=== PATIENT | male | born 1960 | race African-American/Black ===

== ENCOUNTER 2016-06-01 18:16 | Emergency (ER) | payer OTHER ==
--- NOTE | ~2016-06-01 | EKG ---
PATIENT: DARREN ROSALES UNIT #: [id number] Ventricular Rate: 68 BPM Atrial Rate: 68 BPM P-R Interval: 162 ms QRS Duration: 92 ms Q-T Interval: 414 ms QTC Calculation(Bezet): 440 ms P [place]: 70 degrees Calculated R [place]: 27 degrees Calculated T [place]: 19 degrees Diagnosis Line: Normal sinus rhythm Diagnosis Line: Normal ECG Diagnosis Line: When compared with ECG of 15-APR-2016 06:04, Diagnosis Line: No significant change was found Diagnosis Line: Confirmed by RAUDEL LOPEZ MD ([id number]) on 06/02/2016 Diagnosis Line: 8:02:02 PM INTERPRETING MD: JESSICA JANG
[2016-06-01 16:44] LABS: POC - CKMB <1.0 ng/mL (0.0-7.9); POC - TROPONIN <0.05 ng/mL (<=0.05)
[2016-06-01 16:48] LABS: BASOPHIL# 0.1 X10e3 (0-0.3); BASOPHIL% 1.2 % (0-2.5); DIFF IND NO; EOSINOPHIL# 0.2 X10e3 (0-0.7); EOSINOPHIL% 2.7 % (0.0-7.0); HEMATOCRIT 41.4 % (38.0-50.0); HEMOGLOBIN 14.1 gm/dL (13.0-16.0); LYMPHOCYTE# 2.9 X10e3 (1.0-3.5); LYMPHOCYTE% 47.4 % (17.0-45.0); MEAN CELL VOLUME 95.7 FL (83-96); MEAN CORPUSCULAR HEMOGLOBIN 32.5 PG (28-34); MEAN PLATELET VOLUME 8.5 FL (6.5-11.5); MONOCYTE# 0.6 X10e3 (0-1.0); MONOCYTE% 10.6 % (3.0-12.0); NEUTROPHIL# 2.3 X10e3 (1.5-7.1); NEUTROPHIL% 38.1 % (40-75); PLATELET COUNT 135 X10e3 (140-420); RED BLOOD COUNT 4.33 X10e (3.90-5.60); RED CELL DISTRIBUTION WIDTH 12.8 % (11.0-15.5); WHITE BLOOD COUNT 6.1 X10e3 (4.0-10.5)
[2016-06-01 17:17] LABS: BUN/CREATININE RATIO 13.75; CALCIUM SERUM 8.7 mg/dL (8.4-10.2); CREATININE SERUM 0.8 mg/dL (0.6-1.4); GLOM FILT RATE Estimated 115.8 mL/min (>60); POTASSIUM 3.7 mmol/L (3.5-5.1)
[~2016-06-01 18:16] MED LIST: AMOXIL500 M1 PO; ATARAX PO; GRALISE1 EACH PO; METFORMIN HCL1000 M1 PO; MICRONASE5 M2 PO; MOTRIN IB200 M1 PO; NO MEDICATIONS; PREDNISONE PO; PROAIR HFA8.5 GM INH; PROCTOFOAM-HC10 G1 RC; TAMIFLU75 M1 PO; TUSSIONEX PENN473 ML PO; ULTRAM PO; VICODIN 5/1 TAB 5/50 PO; VICODIN 5/500 T1 TAB; VICODIN PO
== END 2016-06-01 18:40 | disposition home or self-care (01) ==
LOC: CED 18:16
PROVIDERS: Emergency Medicine
DX: E11.42 Type 2 diabetes mellitus with diabetic polyneuropathy (principal); E11.65 Type 2 diabetes mellitus with hyperglycemia; M25.511 Pain in right shoulder; G89.29 Other chronic pain; F17.200 Nicotine dependence, unspecified, uncomplicated; Z76.0 Encounter for issue of repeat prescription
CPT/HCPCS: 36415; 80048; 82553; 82947; 84484; 85025; 93005; 99283

== ENCOUNTER 2016-07-20 22:38 | Observation (INO) | payer OTHER ==
--- NOTE | ~2016-07-20 | CR72 ---
[facility] A Service of [facility] RADIOLOGY TEXT RESULTS PATIENT: DARREN ROSALES LOCATION: [facility] 313- : 58 UNIT #: [id number] AGE: [address]: Twila Floyd MD SEX: M ORDER DR: [id number] [facility] [address]. [place], [place] [address] [id number] MR#: [id number] Acc #: [id number] NAME: DARREN ROSALES : 1960 SEX: M STUDY DATE/TIME: 07/21/2016 1:45 UNIT: [address] ROOM: [facility] STUDY DESCRIPTION: CR Chest Single View Portable Attending Physician: Twila Floyd M.D. Ordering Physician: Quentin Murillo D.O. Primary Care Physician: No Primary Care Physician MEDICAL IMAGING REPORT This report is preliminary unless electronic signature is present EXAM Portable chest. INDICATION Chest pain today. PROCEDURE Frontal view of the chest. COMPARISON 04/08/2016 FINDINGS Heart size within normal limits. No dense consolidation. No pleural fluid or pneumothorax. IMPRESSION No active process. Dictated by... Rich Kurtz M.D. THIS IS AN ELECTRONICALLY VERIFIED REPORT Rich Kurtz M.D. at 07/25/2016 7:22 AM AMANDA/manjeet TD: 07/21/2016 10:11 JOB #: [id number] MEDICAL IMAGING REPORT Page 1 of 1 COPY
--- NOTE | ~2016-07-20 | EKG ---
PATIENT: DARREN ROSALES UNIT #: [id number] Ventricular Rate: 70 BPM Atrial Rate: 70 BPM P-R Interval: 170 ms QRS Duration: 88 ms Q-T Interval: 436 ms QTC Calculation(Bezet): 470 ms P [place]: 55 degrees Calculated R [place]: 3 degrees Calculated T [place]: 24 degrees Diagnosis Line: Normal sinus rhythm with sinus arrhythmia Diagnosis Line: Normal ECG Diagnosis Line: When compared with ECG of 01-JUN-2016 16:26, Diagnosis Line: No significant change was found Diagnosis Line: Confirmed by GABY RAMIREZ MD ([id number]) on Diagnosis Line: 07/21/2016 7:10:51 PM INTERPRETING MD: JAMES JANG
--- NOTE | ~2016-07-20 | CO ---
Unit #: [id number] #: [id number] Patient: DARREN ROSALES [id number] [address] [place], [place] [address] [id number] I MR#: [id number] NAME: DARREN ROSALES. ROOM: 313 Age: 56 Sex: M Admission Date: 07/21/2016 : 1960 Attending Physician: Twila Floyd M.D. CONSULTATION REPORT SHORT SUMMARY STAY CHIEF COMPLAINT Left arm numbness and pain. HISTORY OF PRESENTING ILLNESS A 56-year-old, male, who has a history of diabetes came, because of numbness and pain in the left arm. He was very concerned about stroke, because he has had strong family history of cerebrovascular accident. The patient works in the [employer]. He had a fall a week ago and since then, it is getting worse. The patient has had cervical spine surgery also about a year ago or so. According to patient, he is better since the admission in the last few hours. He does complain of tingling and numbness mostly three fingers on the left hand. He does complain of mildly decreased strength. No complain of back pain at this time; although, he does get pains off and on. PAST MEDICAL HISTORY 1. History of diabetes mellitus type 2. 2. Degenerative disk disease. 3. Chronic obstructive pulmonary disease. HOME MEDICATIONS Glucophage 500 mg b.i.d., and inhaler. Rest of the medication, he does not know the name. ALLERGIES No known drug allergies. SOCIAL HISTORY The patient is a smoker. Smokes half pack per day, has been smoking for long period of time. No history of alcohol abuse or drug abuse. The patient lives with his cousin and works in [employer]. FAMILY HISTORY The patient has a strong family history of diabetes, coronary artery disease, and stroke. REVIEW OF SYSTEMS No history of nausea or vomiting. No history of fevers, chills, or rigors. No history of chest pain. No history of abdominal pain. No palpitations. No syncopal episode. No leg swelling. Rest is as per history of presenting illness. Unit #: [id number] #: [id number] Patient: DARREN ROSALES PHYSICAL EXAMINATION GENERAL: The patient is lying comfortably in bed, in no respiratory distress. VITAL SIGNS: Blood pressure is 110/70, respiratory rate 17, pulse is 83, temperature 98.5, and oxygen saturation is 99%. HEENT: Head is normocephalic. Eye movements are normal. NECK: Supple. CHEST: Fair air entry. Some wheezing is heard bilaterally. CVS: S1, S2 positive. Regular rhythm. ABDOMEN: Soft. No tenderness. EXTREMITIES: Negative edema. Pulses are palpable. The patient does have chronic ulceration on the tips of two toes. According to the patient that has been there for a long period of time. It is dry. No discharge. B[employer] BINDING: Awake, alert, oriented x3. No focal neurological deficit. DIAGNOSTIC STUDIES LABORATORY RESULTS: WBC 6.2, hemoglobin 14.3, hematocrit 42.5, and platelet count of 138. Sodium 133, potassium 3.5, chloride 99, BUN 16, creatinine 1.1. Urinalysis is normal. Hemoglobin A1c 9.8. Vitamin B12 708, folic acid 16.3. Lipid profile shows total cholesterol 157, triglycerides 227, LDL 86, and HDL 26. IMAGING STUDIES: MRI of the brain was done. It shows no demonstrable intracranial abnormality. MRI of the cervical spine was done, which shows the patient does have concentric disk bulge with mild bilateral facet changes on the left side. No canal stenosis. There is no significant interval worsening when compared to the prior study from 2 years ago. HOSPITAL COURSE The patient was admitted to the hospital with left upper extremity numbness and tingling to rule out any TIA or CVA. MRI of the brain was done, which was normal. MRI of the cervical spine was done, which shows degenerative disk disease. The patient has had spine surgery in the past. May need to go back to the spine surgeon. The patient has also been found to have carpal tunnel syndrome. The patient has been given carpal tunnel syndrome brace. He will be using it during work and nighttime. Mobic 15 mg p.o. daily is being started. Plan of care has been discussed with the patient. Nicotine cessation counseling done. The patient will be seen in my office in a week. DISCHARGE INSTRUCTIONS Medication as per med rec. Follow up with Dr. Floyd, #[phone]. DISCHARGE MEDICATIONS Glucophage 500 mg b.i.d., Mobic 15 mg daily. Dictated by... Twila Floyd M.D. TOYA/yamileth TD: 07/22/2016 16:11 JOB #: [id number] Unit #: [id number] #: [id number] Patient: DARREN ROSALES CONSULTATION REPORT Page 1 of 1 X Twila Floyd MD CONSULTATION REPORT
--- NOTE | ~2016-07-20 | CO ---
Unit #: [id number] #: [id number] Patient: DARREN ROSALES [id number] [facility] [address] [facility]. [place], [place] [address] [id number] I MR#: [id number] NAME: DARREN ROSALES. ROOM: 313 Age: 56 Sex: M Admission Date: 07/21/2016 : 1960 Attending Physician: Twila Floyd M.D. CONSULTATION REPORT REASON FOR CONSULTATION Left-sided numbness. PATIENT IDENTIFICATION This is a 56-year-old, right-handed, male, who is evaluated in room 313 at [facility]. SOURCE OF INFORMATION The patient and previous records. PROBLEM LIST 1. History of diabetes mellitus. 2. COPD. 3. Thrombocytopenia. 4. Tobacco abuse. 5. Also cervical spine problems. He has had cervical spine surgery done. 6. Recent strep throat and influenza. 7. Right arm surgery. 8. Also hypertension. 9. Peripheral neuropathy. HISTORY OF PRESENT ILLNESS This is a very pleasant 56-year-old gentleman, who actually presented yesterday to the emergency room at 10:30 p.m. for left-sided numbness. The issue is that he has had cervical spine problem. He has had left-sided numbness and he works a physical job as a cook at [employer], so yesterday he got worse and he came. There was nothing on the face. There is nothing on the right side or in the left lower extremity. He is stable. He got a CT which was unremarkable. He already got an MRI which was unremarkable. His hemoglobin A1c is quite elevated. Clinically, he is complaining of numbness in the palm, but more so in the left little finger. No falls or injuries right now, but 3 days ago he fell on the right hip and he said he got up and then think it was much. He did not have any significant neck flexion-extension. No seizures. No migraines. He says he takes medication. He is on ibuprofen, Aleve, and metformin. Unit #: [id number] #: [id number] Patient: DARREN ROSALES He did not complain to me about any shortness of breath. He still smokes about half a pack and he does acknowledge some alcohol use. PAST MEDICAL HISTORY As discussed above. PAST SURGICAL HISTORY As discussed above. ALLERGIES None. HOME MEDICATIONS Metformin, ibuprofen, Aleve. Others are being looked into, but I believe that was all that we had. FAMILY HISTORY Diabetes, congestive heart failure, and lupus. SOCIAL HISTORY Drinks alcohol on weekends. Lives with the family. Works as a cook at [employer]. He is single, but has family with him. Half pack tobacco use. Denies drug use. REVIEW OF SYSTEMS Mostly as discussed in history of present illness. Mostly the left-sided numbness. CONSTITUTIONAL: No weight issues. No fever, chills, rigor, or sweats. HEENT: No headaches. No double vision, earache, runny nose, or sore throat. CARDIOVASCULAR: No chest pain, clubbing, cyanosis, orthopnea, or palpitation. PULMONARY: He did not complaint of shortness of breath to me. GI: No nausea, vomiting, diarrhea, or constipation. GENITOURINARY: No genitourinary symptoms. EXTREMITIES: Problems as discussed. BACK: He has had back problems in the past. PSYCHIATRIC: No psychotic issue. NEUROLOGIC: Issue of left-side numbness, possible peripheral neuropathy. No other hematologic, dermatologic, or endocrine problems other than diabetes known to me. PHYSICAL EXAMINATION VITAL SIGNS: Temperature 97.9, pulse is 74, respirations 16, blood pressure is 106/70. Pain was 6 to 7/10. O2 saturations were 95% to 100%. Weight of 209 pounds. NEUROLOGIC: The patient is awake. He is alert. He is oriented. He can name and he can follow commands. No right or left confusion. No finger agnosia. Cranial nerve examination demonstrates full santos of vision to confrontation. Eye movements are conjugate. I did not see any ptosis. I did not see any nystagmus. Extraocular movements are intact. Sensation on the face and scalp are normal. Strength of muscles of facial expression normal. Hearing seemed to be intact bilaterally. Tongue was Unit #: [id number] #: [id number] Patient: DARREN ROSALES midline. Uvula was midline. Palate elevation was normal. Head turning and shoulder shrugs were unremarkable. Motor examination demonstrated normal bulk and tone. I really did not see any appreciable drift or fine motor movement abnormalities. Sensory examination intact for soft touch and pain sensation. He complained of some decreased sensation circumferentially in the left upper extremity, but definitely so on the palmar aspect. No extinction was seen. May be having glove and stocking type peripheral neuropathy type picture. Romberg was not evaluated. Gait examination was deferred. I could not get any reflexes. Toes are equivocal. Tinel's positive for median nerve at the wrist on the left side. DIAGNOSTIC STUDIES IMAGING STUDIES: CT and MRI reviewed. LABORATORY RESULTS: Random glucose was 156, sodium was 133. Hemoglobin A1c was 9.8. AST was 87, ALT was 53. White count was 6.2. Urine drug screen was negative. IMPRESSION 1. Likely left-sided carpal tunnel syndrome. 2. Cervical radiculopathy C8-T1 cannot be otherwise absolutely ruled out either. This does not look like a stroke or transient ischemic attack. His MRI is negative. He does have risk factors though. I would recommend to do cervical spine MRI and if it does not show any acute major lesions or compressive myelopathy or radiculopathy type picture, then he can be seen by Neurology as outpatient and do nerve conduction EMGs. Please see my orders and we will see how things go. His work is probably making things worse, so call me for any other questions, issues, or concerns. Further treatment will be based on our findings and if everything is okay, may be discharged. Dictated by... Zoltan Arora/yamileth TD: 07/22/2016 05:33 JOB #: [id number] CONSULTATION REPORT Page 1 of 1 X Magnolia Bernal MD CONSULTATION REPORT
--- NOTE | ~2016-07-20 | MR32 ---
[facility] A Service of [facility] & [facility] RADIOLOGY TEXT RESULTS PATIENT: DARREN ROSALES LOCATION: [facility] 313-01 : 58 UNIT #: [id number] AGE: [address]: Twila Floyd MD SEX: M ORDER DR: [id number] [facility] [address] [facility]. [place], [place] [address] [id number] I MR#: [id number] Acc #: [id number] NAME: DARREN ROSALES : 1960 SEX: M STUDY DATE/TIME: 07/21/2016 12:50 UNIT: A U ROOM: [facility] STUDY DESCRIPTION: MR Cervical Wo Contrast Attending Physician: Twila Floyd M.D. Ordering Physician: Magnolia Bernal M.D. Primary Care Physician: No Primary Care Physician MRI CENTER REPORT This report is preliminary unless electronic signature is present. EXAM MRI of the cervical spine without contrast, dated 07/21/16. COMPARISON MRI cervical spine without contrast dated 03/24/14. HISTORY Tingling in the left arm for 1 week, dizziness. History of fall on 07/18/16. FINDINGS Multisequence, multiplanar imaging of the cervical spine was obtained without contrast. Vertebral body heights and alignment are preserved. Degenerative disc disease is seen at multiple levels. Cord demonstrates normal course, caliber and signal. Pre and paravertebral soft tissues do not demonstrate any significant abnormality. C2-3: Concentric disc bulge with mild bilateral facet changes particularly in the left. No canal stenosis. Minimal left neural foraminal encroachment is seen. C3-4: Concentric disc bulge with small central protrusion. Left uncinate spur is noted with mild left neural foraminal encroachment. C4-5: Concentric disc bulge with small central protrusion. No canal stenosis or neural foraminal narrowing. C5-6: Concentric disc bulge with small central protrusion. No canal stenosis or neural foraminal narrowing. C6-7, C7-T1: Mild disc bulge without canal disease or neural foraminal narrowing. Mild bilateral facet changes are noted particularly in C7-T1. [facility] A Service of [facility] & [facility] RADIOLOGY TEXT RESULTS PATIENT: DARREN ROSALES LOCATION: [facility] 313-01 : 58 UNIT #: [id number] AGE: [address]: Twila Floyd MD SEX: M ORDER DR: IMPRESSION 1. Given the differences in slice selection, there is no significant interval worsening when compared to the prior study from 2 years ago. Dictated by... Regla Corbett M.D. THIS IS AN ELECTRONICALLY VERIFIED REPORT Regla Corbett M.D. at 07/21/2016 5:30 PM CPR/jt TD: 07/21/2016 17:11 JOB #: [id number] MRI CENTER REPORT Page 1 of 1 COPY
--- NOTE | ~2016-07-20 | CT71 ---
[facility] A Service of [facility] RADIOLOGY TEXT RESULTS PATIENT: DARREN ROSALES LOCATION: [facility] : 58 UNIT #: [id number] AGE: [address]: Twila Floyd MD SEX: M ORDER DR: [id number] [facility] [address] [place], [place] [address] [id number] I MR#: [id number] Acc #: [id number] NAME: DARREN ROSALES : 1960 SEX: M STUDY DATE/TIME: 07/21/2016 1:47 UNIT: A PCU ROOM: [address] [place] [address] DESCRIPTION: CT Head Wo Contrast Attending Physician: Twila Floyd M.D. Ordering Physician: Quentin Murillo D.O. Primary Care Physician: Primary Care Physician No MEDICAL IMAGING REPORT This report is preliminary unless electronic signature is present EXAM CT head without contrast INDICATION Left-sided head pain and tingling since a fall on Monday. PROCEDURE Unenhanced CT head. This CT examination was performed with one or more of the following radiation dose reduction techniques: automatic exposure control, adjustment of mA and/or kV according to patient size, and iterative reconstruction. COMPARISON None. FINDINGS No acute hemorrhage, abnormal mass effect, extraaxial fluid collection or hydrocephalus. No convincing evidence for acute or early subacute large territory infarct. No calvarial fracture. IMPRESSION No acute intracranial findings. Dictated by... Rich Kurtz M.D. THIS IS AN ELECTRONICALLY VERIFIED REPORT Rich Kurtz M.D. at 07/25/2016 7:22 AM EED/mika TD: 07/21/2016 10:09 JOB #: [id number] [facility] A Service [facility] RADIOLOGY TEXT RESULTS PATIENT: DARREN ROSALES LOCATION: [facility] : 58 UNIT #: [id number] AGE: [address]: Twila Floyd MD SEX: M ORDER DR: MEDICAL IMAGING REPORT Page 1 of 1 COPY
--- NOTE | ~2016-07-20 | MR18 ---
[facility] A Service of [facility] RADIOLOGY TEXT RESULTS PATIENT: DARREN ROSALES LOCATION: [facility] : 58 UNIT #: [id number] AGE: [address]: Twila Floyd MD SEX: M ORDER DR: [id number] [facility] [address] [facility]. [place], [place] [address] [id number] I MR#: [id number] Acc #: [id number] NAME: DARREN ROSALES. : 1960 SEX: M STUDY DATE/TIME: 07/21/2016 6:53 UNIT: A PC ROOM: [address] [place] [address] DESCRIPTION: MR Brain Wo Contrast Attending Physician: Twila Floyd M.D. Ordering Physician: Twila Floyd M.D. Primary Care Physician: No Primary Care Physician MRI CENTER REPORT This report is preliminary unless electronic signature is present. EXAM MRI of the brain without contrast dated 07/21/2016. COMPARISON CT head without contrast dated 07/21/2016. TECHNIQUE This CT exam was performed with one or more of the following radiation dose reduction techniques: automatic exposure control, adjustment of mA and/or kV according to patient size, and iterative reconstruction. HISTORY Weakness, tingling in the left arm for 1 week, dizziness and headaches. FINDINGS Multisequence multiplanar imaging of the brain was obtained without contrast. No acute stroke, space-occupying intracranial mass, mass effect, midline shift or hydrocephalus. العلي-white junction is preserved. Basal ganglia, brainstem and cerebellar hemispheres are within normal limits. Mild nasal septal deviation is noted in the right. Imaged orbits and the ocular structures and mastoids demonstrate mild right mastoid tip mucosal thickening. Thick slices through the sella with the pituitary gland, pineal region and upper cervical spine are grossly unremarkable. IMPRESSION No demonstrable intracranial abnormality. Dictated by... Regla Corbett M.D. [facility] A Service of [facility] RADIOLOGY TEXT RESULTS PATIENT: DARREN ROSALES LOCATION: [facility] : 58 UNIT #: [id number] AGE: [address]: Twila Floyd MD SEX: M ORDER DR: THIS IS AN ELECTRONICALLY VERIFIED REPORT Regla Corbett M.D. at 07/21/2016 5:29 PM CPR/nohemi TD: 07/21/2016 11:35 JOB #: [id number] MRI CENTER REPORT Page 1 of 1 COPY
[2016-07-21 00:22] LABS: POC - CKMB <1.0 ng/mL (0.0-7.9); POC - TROPONIN <0.05 ng/mL (<=0.05)
[2016-07-21 00:34] LABS: BASOPHIL# 0.1 X10e3 (0-0.3); BASOPHIL% 1.2 % (0-2.5); EOSINOPHIL# 0.2 X10e3 (0-0.7); EOSINOPHIL% 3.9 % (0.0-7.0); HEMATOCRIT 42.5 % (38.0-50.0); HEMOGLOBIN 14.3 gm/dL (13.0-16.0); LYMPHOCYTE# 2.8 X10e3 (1.0-3.5); LYMPHOCYTE% 44.8 % (17.0-45.0); MEAN CORPUSCULAR HEMOGLOBIN 32.4 PG (28-34); MEAN CORPUSCULAR HGB CONC 33.8 g/dL (30-36); MEAN PLATELET VOLUME 8.9 FL (6.5-11.5); MONOCYTE# 0.9 X10e3 (0-1.0); MONOCYTE% 15.1 % (3.0-12.0); NEUTROPHIL# 2.2 X10e3 (1.5-7.1); PLATELET COUNT 138 X10e3 (140-420); RED BLOOD COUNT 4.42 X10e (3.90-5.60); RED CELL DISTRIBUTION WIDTH 12.6 % (11.0-15.5); WHITE BLOOD COUNT 6.2 X10e3 (4.0-10.5)
[2016-07-21 00:36] LABS: DIFF IND NO
[2016-07-21 01:29] LABS: ALBUMIN SERUM 3.6 g/dL (3.5-5.0); BILIRUBIN, DIRECT 0.4 mg/dL (0.0-0.2); BILIRUBIN,INDIRECT 1.2 mg/dL (0.0-0.9); BILIRUBIN,TOTAL 1.6 mg/dL (0.2-2.0); BUN/CREATININE RATIO 14.54; CALCIUM SERUM 9.3 mg/dL (8.4-10.2); CREATININE SERUM 1.1 mg/dL (0.6-1.4); GLOM FILT RATE Estimated 85.9 mL/min (>60); POTASSIUM 3.5 mmol/L (3.5-5.1); PROTEIN TOTAL SERUM 7.7 g/dL (6.0-8.3)
[2016-07-21 02:39] LABS: URINE SOURCE CLEAN CATCH
[2016-07-21 02:44] LABS: URINE APPEARANCE CLEAR; URINE BILIRUBIN NEG (NEG); URINE BLOOD NEG (NEG); URINE COLOR DK YELLOW; URINE GLUCOSE NEG (NEG); URINE KETONE NEG (NEG); URINE LEUKOCYTE ESTERASE NEG (NEG); URINE NITRATE NEG (NEG); URINE PH 5.5 (5-8); URINE PROTEIN NEG (NEG); URINE SPECIFIC GRAVITY 1.012 (1.003-1.035)
[2016-07-21 02:52] LABS: CULTURE INDICATED? NO
[2016-07-21 02:54] LABS: AMPHETAMINE NEG (NEG); BARBITURATES NEG (NEG); BENZODIAZEPINES NEG (NEG); COCAINE NEG (NEG); MARIJUANA NEG (NEG); OPIATES NEG (NEG); TRICYCLIC ANTIDEPRESSANTS NEG (NEG); U METHADONE NEG (NEG)
[2016-07-21] MEDS ORDERED: GLUCOPHAGE500 MG PO (04:54)
[2016-07-21 15:17] LABS: FOLATE (FOLIC ACID) 16.3 ng/mL (>5.8)
[2016-07-21 15:51] LABS: CHOLESTEROL 157 mg/dL (0-200); HDL CHOLESTEROL 26 mg/dL (29-75); LDL CHOLESTEROL 86 mg/dL (-130); LDL/HDL RATIO 3 RATIO (0-4); TRIGLYCERIDES 227 mg/dL (10-160)
[2016-07-21] MEDS ORDERED: MOBIC15 MG PO (18:18)
== END 2016-07-21 18:31 | disposition home or self-care (01) ==
LOC: CED 22:38 → C3A PCU 07-21 04:20 → CEDOF 07-21 04:20 → CED 07-21 04:31 → CEDOF 07-21 04:31 → C3A PCU 07-21 07:28
PROVIDERS: Emergency Medicine; Psychiatry & Neurology Neurology
DX: R53.1 Weakness (principal); R20.2 Paresthesia of skin; M79.602 Pain in left arm; E11.9 Type 2 diabetes mellitus without complications; Z79.84 Long term (current) use of oral hypoglycemic drugs; J44.9 Chronic obstructive pulmonary disease, unspecified; M50.30 Other cervical disc degeneration, unspecified cervical region; F17.200 Nicotine dependence, unspecified, uncomplicated; Z82.3 Family history of stroke; Z83.3 Family history of diabetes mellitus; Z82.49 Family history of ischemic heart disease and other diseases of the circulatory system
CPT/HCPCS: 70450; 70551; 71010; 72141; 80048; 80061; 80076; 80307; 81003; 82553; 82607; 82746; 82947; 83036; 84484; 85025; 93005; 99285; G0378; J1815

== ENCOUNTER 2016-10-25 18:34 | Emergency (ER) | payer OTHER ==
[~2016-10-25] VITALS: Ht 182.9 cm; Wt 95.2 kg
--- NOTE | ~2016-10-25 | EKG ---
PATIENT: DARREN ROSALES UNIT #: [id number] Ventricular Rate: 70 BPM Atrial Rate: 70 BPM P-R Interval: 164 ms QRS Duration: 86 ms Q-T Interval: 418 ms QTC Calculation(Bezet): 451 ms P [place]: 52 degrees Calculated R [place]: 16 degrees Calculated T [place]: 37 degrees Diagnosis Line: Normal sinus rhythm with sinus arrhythmia Diagnosis Line: Normal ECG Diagnosis Line: When compared with ECG of 20-JUL-2016 22:46, Diagnosis Line: No significant change was found Diagnosis Line: Confirmed by GABY RAMIREZ MD ([id number]) on Diagnosis Line: 10/28/2016 10:48:09 AM INTERPRETING MD: JAMES JANG
--- NOTE | ~2016-10-25 | CR173 ---
[facility] A Service of [facility] & [facility] RADIOLOGY TEXT RESULTS PATIENT: DARREN ROSALES LOCATION: [facility] : 58 UNIT #: [id number] AGE: [address]: BERTRAND BEST APRN SEX: M ORDER DR: [id number] [facility] [address] [facility]. [place], [place] [address] [id number] MR#: [id number] Acc #: [id number] NAME: DARREN ROSALES : 1960 SEX: M STUDY DATE/TIME: 10/25/2016 21:27 UNIT: [facility] ROOM: STUDY DESCRIPTION: CR Knee 3 Views Rt Attending Physician: Bertrand Best Aprn Ordering Physician: Bertrand Best Aprn Primary Care Physician: No Primary Care Physician MEDICAL IMAGING REPORT This report is preliminary unless electronic signature is present EXAM Right knee series dated 10/25/2016. COMPARISON None. HISTORY Right knee pain and swelling post fall two weeks ago. FINDINGS Three views of the right knee were obtained. No acute displaced fracture or dislocation. There was no drainable significant effusion. Spurs are noted in the patellofemoral and tibiofemoral joints. Soft tissues do not demonstrate any significant discernible swelling on this modality. No radiopaque foreign body. Dictated by... Regla Corbett M.D. THIS IS AN ELECTRONICALLY VERIFIED REPORT Regla Corbett M.D. at 10/26/2016 7:09 PM CPR/gz TD: 10/26/2016 10:10 JOB #: [id number] MEDICAL IMAGING REPORT Page 1 of 1 COPY
[~2016-10-25 18:34] MED LIST changes: +GLUCOPHAGE500 MG PO; +MOBIC15 MG PO
== END 2016-10-25 22:56 | disposition home or self-care (01) ==
LOC: CED 18:34 → CFTX 19:53 → CED 22:56
DX: S80.01XA Contusion of right knee, initial encounter (principal); E11.40 Type 2 diabetes mellitus with diabetic neuropathy, unspecified; F17.210 Nicotine dependence, cigarettes, uncomplicated; Z79.84 Long term (current) use of oral hypoglycemic drugs; W19.XXXA Unspecified fall, initial encounter; Y92.009 Unspecified place in unspecified non-institutional (private) residence as the place of occurrence of the external cause
CPT/HCPCS: 73562; 82947; 93005; 99284